=== PATIENT | female | born 1970 | race African-American/Black ===

== ENCOUNTER 2018-10-04 15:11 | Emergency (ER) | payer OTHER ==
[~2018-10-04] VITALS: Ht 170.2 cm; Wt 115.7 kg
[~2018-10-04 15:11] MED LIST: ALLEGRA ALLERG180 MG PO; AMOXICILLIN 50500 MG PO; ANTIVERT25 MG PO; COZAAR 50 MG TA50 M2 PO; CYCLOBENZAPRINE5 MG PO; FLEXERIL PO; HYDROCHLOROTH12.5 M1 PO; IBUPROFEN 800800 M1 PO; NAPROSYN500 MG PO; NORVASC2.5 MG; PERCOCET 5-3251 EACH PO; POTASSIUM20 PO; ZESTORETIC 20-1 EAC3 PO; ZOFRAN ODT4 M1 PO
[2018-10-04 15:51] LABS: ABSOLUTE LYMPHOCYTES 1.6 thou/uL (0.8-5.3); ABSOLUTE MONOCYTES 0.3 thou/uL (0.0-1.2); ABSOLUTE NEUTROPHILS 2.4 thou/uL (1.6-8.1); BASOPHILS 0.1 %; HEMATOCRIT 33.1 % (37.0-47.0); HEMOGLOBIN 11.3 gm/dL (12.0-15.0); LYMPHOCYTES 37.9 %; MCH 30.6 pg (26.0-34.0); MONOCYTES 6.9 %; MPV 7.6 fl. (7.2-11.1); NUCLEATED RBCS 0 /100WBC; PLATELET COUNT* 268 thou/uL (150-400); POLYS 55.1 %; RBC 3.68 mil/uL (4.20-5.00); RDW-CV 13.5 % (10.5-14.5); WBC 4.3 thou/uL (4.0-11.0)
[2018-10-04 16:08] LABS: CALCIUM 9.2 mg/dL (8.5-10.1); CREATININE 0.9 mg/dL (0.6-1.3); POTASSIUM 3.2 mmol/L (3.5-5.1)
[2018-10-04 16:13] LABS: ALBUMIN 3.4 g/dL (3.4-5.0); MAGNESIUM 1.7 mg/dL (1.8-2.4); TOTAL BILIRUBIN 0.3 mg/dL (<0.1-1.0); TOTAL PROTEIN 7.2 g/dL (6.4-8.2)
[2018-10-04] MEDS ORDERED: NABUMETONE 750750 M1 PO (16:51)
[2018-10-04] MEDS ORDERED: NORCO 5-325 TA1 EAC1 PO (16:51)
[2018-10-04] MEDS ORDERED: ZANAFLEX4 MG PO (16:51)
[2018-10-04] MEDS ORDERED: CLOTRIMAZOLE 1%15 G1 TOP (17:16)
[2018-10-04 17:19] VITALS: BP 150/102
== END 2018-10-04 17:19 | disposition home or self-care (01) ==
LOC: M.ERS 15:11
PROVIDERS: Nurse Practitioner Family
DX: B35.9 Dermatophytosis, unspecified (principal); M79.661 Pain in right lower leg; I10 Essential (primary) hypertension; E66.9 Obesity, unspecified; Z68.39 Body mass index [BMI] 39.0-39.9, adult; Z88.5 Allergy status to narcotic agent

== ENCOUNTER 2019-02-16 23:05 | Emergency (ER) | payer OTHER ==
[~2019-02-16] VITALS: Ht 170.2 cm; Wt 131.5 kg
[~2019-02-16 23:05] MED LIST changes: +CLOTRIMAZOLE 1%15 G1 TOP; +NABUMETONE 750750 M1 PO; +NORCO 5-325 TA1 EAC1 PO; +ZANAFLEX4 MG PO
[2019-02-16] MEDS ORDERED: PREDNISONE 20 M20 M1 PO (23:31)
[2019-02-16 23:34] VITALS: BP 153/96
== END 2019-02-16 23:34 | disposition home or self-care (01) ==
LOC: M.ERS 23:05
DX: R21 Rash and other nonspecific skin eruption (principal); I10 Essential (primary) hypertension; E66.9 Obesity, unspecified; Z68.42 Body mass index [BMI] 45.0-49.9, adult; Z88.5 Allergy status to narcotic agent

== ENCOUNTER 2019-06-01 16:40 | Emergency (ER) | payer OTHER ==
[~2019-06-01] VITALS: Ht 170.2 cm; Wt 129.3 kg
[~2019-06-01 16:40] MED LIST changes: +PREDNISONE 20 M20 M1 PO
[2019-06-01 17:23] LABS: ABSOLUTE LYMPHOCYTES 1.9 thou/uL (0.8-5.3); ABSOLUTE MONOCYTES 0.4 thou/uL (0.0-1.2); ABSOLUTE NEUTROPHILS 2.6 thou/uL (1.6-8.1); BASOPHILS 0.5 %; HEMATOCRIT 38.6 % (37.0-47.0); HEMOGLOBIN 13.3 gm/dL (12.0-15.0); LYMPHOCYTES 39.2 %; MCH 29.8 pg (26.0-34.0); MCHC 34.5 g/dL (28.0-37.0); MCV 86.4 fL (80.0-100.0); MONOCYTES 7.7 %; NUCLEATED RBCS 0 /100WBC; PLATELET COUNT* 299 thou/uL (150-400); POLYS 52.6 %; RBC 4.46 mil/uL (4.20-5.00); RDW-CV 14.5 % (10.5-14.5); WBC 4.9 thou/uL (4.0-11.0)
[2019-06-01 17:31] LABS: CALCIUM 9.3 mg/dL (8.5-10.1); POTASSIUM 3.1 mmol/L (3.5-5.1)
[2019-06-01 17:36] LABS: ALBUMIN 3.7 g/dL (3.4-5.0); MAGNESIUM 1.9 mg/dL (1.8-2.4); TOTAL BILIRUBIN 0.2 mg/dL (<0.1-1.0); TOTAL PROTEIN 8.1 g/dL (6.4-8.2)
[2019-06-01 18:07] LABS: URINE BILIRUBIN NEGATIVE (Negative); URINE BLOOD 1+ (Negative); URINE CLARITY CLEAR; URINE COLOR YELLOW; URINE GLUCOSE-RANDOM NEGATIVE (Negative); URINE KETONES NEGATIVE (Negative); URINE LEUKOCYTES-REFLEX NEGATIVE (Negative); URINE NITRITE-REFLEX NEGATIVE (Negative); URINE PROTEIN NEGATIVE (Negative); URINE SPECIFIC GRAVITY 1.015 (1.005-1.030); URINE UROBILINOGEN 0.2 E.U./dl (0.2-1.0)
[2019-06-01] MEDS ORDERED: HYDROCHLOROTHIA25 M1 PO (18:16)
[2019-06-01] MEDS ORDERED: MECLIZINE HCL25 M1 PO (18:16)
[2019-06-01 18:17] LABS: CASTS None Seen /LPF (None Seen); MUCUS None Seen strn/LPF (None Seen); SQUAMOUS 0-3 Few /LPF (0-3)
[2019-06-01 18:18] LABS: BACTERIA-REFLEX None Seen /HPF (None Seen); CRYSTALS None Seen /LPF (None Seen); URINE RBC 0-2 Rare /HPF (0-2); URINE WBC-REFLEX None Seen /HPF (0-5)
[2019-06-01 18:30] VITALS: BP 147/82
--- NOTE | 2019-06-02 09:20 | EKG ---
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: : 1970 Requested By: Dano Jarrell Order Number: [id number] MD: Christiano Brown Measurements Intervals [place] Rate: 82 P: 53 WI: 193 QRS: 2 QRSD: 100 T: 7 QT: 401 QTc: 469 Interpretive Statements Sinus rhythm Left ventricular hypertrophy Baseline wander in lead(s) II,III,aVF Compared to ECG 09/28/2016 21:51:13 First degree AV block no longer present Atrial abnormality no longer present T-wave abnormality no longer present Electronically Signed On 06-02-2019 9:19:13 CDT by Christiano Brown [email or web address] <ELECTRONICALLY SIGNED> By: Christiano Brown MD, FAC 06/02/19 0919 1656 1656 Christiano Brown MD, FAC /EPI
== END 2019-06-01 18:25 | disposition home or self-care (01) ==
LOC: M.ERS 16:40
PROVIDERS: Nurse Practitioner Psychiatric/Mental Health
DX: E87.6 Hypokalemia (principal); R42 Dizziness and giddiness; I10 Essential (primary) hypertension; E66.9 Obesity, unspecified; Z68.41 Body mass index [BMI] 40.0-44.9, adult; Z88.6 Allergy status to analgesic agent

== ENCOUNTER 2019-07-24 17:01 | Emergency (ER) | payer OTHER ==
[~2019-07-24] VITALS: Ht 170.2 cm; Wt 127.0 kg
[~2019-07-24 17:01] MED LIST changes: +HYDROCHLOROTHIA25 M1 PO; +MECLIZINE HCL25 M1 PO
[2019-07-24] MEDS ORDERED: MEDROLDOSEPACK PO (18:10)
[2019-07-24] MEDS ORDERED: EPIPEN0.3 MG/0.1 IM (18:10)
[2019-07-24 19:39] VITALS: BP 145/65
== END 2019-07-24 19:41 | disposition home or self-care (01) ==
LOC: M.ERS 17:01
DX: T78.1XXA Other adverse food reactions, not elsewhere classified, initial encounter (principal); I10 Essential (primary) hypertension; E66.9 Obesity, unspecified; Z68.41 Body mass index [BMI] 40.0-44.9, adult; Z88.6 Allergy status to analgesic agent; X58.XXXA Exposure to other specified factors, initial encounter

== ENCOUNTER 2020-10-24 18:07 | Emergency (ER) | payer OTHER ==
[~2020-10-24] VITALS: Ht 170.2 cm; Wt 117.9 kg
[~2020-10-24 18:07] MED LIST changes: +EPIPEN0.3 MG/0.1 IM; +MEDROLDOSEPACK PO
[2020-10-24 19:12] VITALS: BP 171/76
[2020-10-24] MEDS ORDERED: KLOR-CON M2020 MEQ PO (19:32)
[2020-10-24] MEDS ORDERED: HYDROCHLOROTHIA25 M1 PO (19:32)
[2020-10-24] MEDS ORDERED: COZAAR 50 MG TA50 MG PO (19:32)
== END 2020-10-24 19:48 | disposition home or self-care (01) ==
LOC: M.ERS 18:07
DX: I10 Essential (primary) hypertension (principal); E66.9 Obesity, unspecified; Z76.0 Encounter for issue of repeat prescription; Z88.5 Allergy status to narcotic agent